=== PATIENT | female | born 1945 | race Caucasian/White ===

== ENCOUNTER 2018-03-11 07:37 | Day surgery (SDC) | payer MEDICARE, BC ==
[2018-03-11] MEDS ORDERED: Lactated Ringers 1,000 ML IV SCH (08:15)
[2018-03-11] MEDS ORDERED: Ampicillin 2 GM in Sodium Chloride 0.9% 100 ML IV ONE (08:30)
[2018-03-11] MEDS ORDERED: Propofol 200 MG/20 ML SDV ONE ×2 (09:20→10:07)
[2018-03-11] MEDS ORDERED: Midazolam 1 MG/ML 2 ML SDV ONE (09:20)
[2018-03-11] MEDS ORDERED: fentaNYL 100 MCG/2 ML SDV ONE (09:20)
[2018-03-11 11:43] VITALS: BP 125/64
--- NOTE | 2018-03-11 12:24 | OR ---
DATE OF PROCEDURE: 03/11/2018 PREOPERATIVE DIAGNOSIS: History of colon polyps. POSTOPERATIVE DIAGNOSES: 1. Two transverse colon polyps adjacent to each other. 2. Ileocecal valve polyp. 3. Diverticulosis. PROCEDURE PERFORMED: Colonoscopy to the cecum with snare cautery polypectomy of two transverse colon polyps adjacent to each other sent to the laboratory as 1 specimen and biopsy resection of the ileocecal valve polyp. SURGEON: MD Tania. ANESTHESIA: IV anesthesia with monitored anesthesia care. INDICATION: This 72-year-old white female is here for a colonoscopy because of a history of colon polyps. She says her last colonoscopic exam was done about 3 years ago. I counseled her for the procedure including risks and alternatives, and she gave her informed consent to proceed. DESCRIPTION OF PROCEDURE: The patient was placed in the left lateral decubitus position. IV anesthesia was administered by the Anesthesia Service. Time-out was held. A rectal exam was performed, which was unremarkable. The flexible video Olympus colonoscope was introduced through her anus, up her rectum, and out her colon all way to the cecum. En route, we saw several left-sided diverticula. There was no bleeding or inflammation associated with any of them. In the transverse colon, we saw 2 polyps near each other. These were fairly large. They initially were biopsied and then removed with the snare. This involved placing the snare about the polyp's base, elevating the polyp up away from the bowel wall, and applying electrocautery as the polyp was amputated. The larger polyp had to be aspirated upon the end of the scope, and the scope was removed with the polyp, then retrieved from the end of the scope. The other polyp was aspirated through the scope and captured in a polyp trap. The scope was passed further up to the cecum and then slowly withdrawn, examining the mucosa throughout. There was a small polyp on the ileocecal valve. This was removed with a single bite of the biopsy forceps. The scope was then withdrawn further with no other additional lesions noted. The scope was retroflexed in the rectum with the distal rectum appearing unremarkable. The scope was straightened and removed. She tolerated the procedure well. Oni Marin MD /[id number]
== END 2018-03-11 11:54 | disposition home or self-care (01) ==
LOC: JP.SDS 07:37
PROVIDERS: ATTEND Surgery
DX: Z12.11 Encounter for screening for malignant neoplasm of colon (principal); D12.0 Benign neoplasm of cecum; D12.3 Benign neoplasm of transverse colon; I10 Essential (primary) hypertension; I48.91 Unspecified atrial fibrillation; J45.909 Unspecified asthma, uncomplicated; K57.30 Diverticulosis of large intestine without perforation or abscess without bleeding; K21.9 Gastro-esophageal reflux disease without esophagitis; Z86.010 Personal history of colon polyps; Z86.73 Personal history of transient ischemic attack (TIA), and cerebral infarction without residual deficits; Z88.1 Allergy status to other antibiotic agents; Z88.2 Allergy status to sulfonamides; Z88.5 Allergy status to narcotic agent; Z88.6 Allergy status to analgesic agent; Z88.8 Allergy status to other drugs, medicaments and biological substances; Z91.048 Other nonmedicinal substance allergy status
CPT/HCPCS: 45380; 45385; J0290; J2250; J2704; J3010; J7030; J7120; 88305

== ENCOUNTER 2020-10-03 07:19 | Day surgery (SDC) | payer MEDICARE, BC ==
[~2020-10-03 07:19] MED LIST: Dextrose 5%-Lactated Ringers 1,000 ML IV SCH; Midazolam 1 MG/ML 2 ML SDV ONE; Propofol 200 MG/20 ML SDV ONE; fentaNYL 100 MCG/2 ML SDV ONE
[2020-10-03] MEDS ORDERED: Dextrose 5%-Lactated Ringers 1,000 ML IV SCH (08:00)
[2020-10-03] MEDS ORDERED: Propofol 200 MG/20 ML SDV ONE (09:09)
[2020-10-03 10:19] VITALS: BP 117/65; PULSE 72
--- NOTE | 2020-10-11 21:09 | OR ---
DATE OF PROCEDURE: 10/03/2020 SURGEON: Bola Humphrey MD PREOPERATIVE DIAGNOSES: 1. History of Deleon esophagus with esophagitis. 2. Recent rectal bleeding with history of multiple colon polyps in past. POSTOPERATIVE DIAGNOSES: 1. History of Deleon esophagus with mildly active gastroesophageal reflux disease. 2. Patchy proximal duodenitis. 3. History of multiple colonic polyps with no recurrent polyps. 4. Left uncomplicated diverticulosis. 5. Excoriated hemorrhoids (likely source of recent rectal bleeding). OPERATIVE PROCEDURE: 1. Esophagogastroduodenoscopy with: a. Biopsy of esophagogastric junction for histological evaluation. b. Biopsies of antrum for CLOtest. 2. Colonoscopy. ANESTHESIA: IV sedation. INDICATIONS FOR PROCEDURE: This 74-year-old with history of Deleon esophagus, presenting for a followup upper endoscopy for surveillance of the Deleon esophagus. She presently is having little in the way of reflux-type symptoms. Does have history of some recent episodes of rectal bleeding, and was having history of multiple colon polyps, and is presently on a 3- year cycle with regard to the colonoscopies. Plan is to proceed with an upper and lower endoscopy with biopsies and a polypectomy as indicated. Potential risks including bleeding and perforation were discussed, and the patient wishes to proceed. DETAILS OF PROCEDURE: The patient was taken to the operating room and placed in a left lateral decubitus position. IV sedation was administered, after which the upper GI endoscope was passed orally through the length of the esophagus into the stomach with retroflexion view of the fundus, thereafter through the pyloric channel and into the proximal duodenum. Findings included normal hypopharynx, larynx, upper esophageal sphincter, esophageal body. At the EG junction, there was some mild gastroesophageal reflux disease. There was some slight upward extension of the gastroesophageal junction mucosal line consistent with history of Deleon esophagus. No plaquing or stricturing was noted. The remainder of the stomach was unremarkable apart from a small hiatal hernia. There was some patchy redness in the duodenal bulb where the duodenum normalized beyond that level. At this point, biopsies obtained from the antrum and sent for CLOtest for H pylori. Multiple biopsies obtained from the esophagogastric junction and sent for histological evaluation. Minimal bleeding from the biopsy sites was seen, and the procedure then concluded. The attention was then taken to the colonoscopy. Initial digital rectal exam was performed. It was unremarkable. Colonoscope was then passed into the rectum with retroflexion revealing some fairly gordon appearing hemorrhoidal columns. These were not actively bleeding, but certainly would be likely a source for pain. Otherwise, the scope was passed to the level of the cecum. The prep was quite good. There was only small amount of liquid stool present. There was some uncomplicated left colonic diverticulosis. Otherwise, no recurrent polyps were seen, and the scope was then withdrawn, the above findings reconfirmed, and the procedure then concluded. The patient was taken to the recovery room in satisfactory condition. Assuming that the biopsies from the esophagogastric junction only showed progression toward dysplasia, the next upper endoscopy and colonoscopy could probably be done in 3 years. Bola Humphrey MD /[id number]
== END 2020-10-03 10:50 | disposition home or self-care (01) ==
LOC: JP.SDS 07:19
PROVIDERS: ATTEND Surgery
DX: K57.31 Diverticulosis of large intestine without perforation or abscess with bleeding (principal); K22.10 Ulcer of esophagus without bleeding; K21.9 Gastro-esophageal reflux disease without esophagitis; K29.80 Duodenitis without bleeding; K44.9 Diaphragmatic hernia without obstruction or gangrene; K64.9 Unspecified hemorrhoids; E78.5 Hyperlipidemia, unspecified; I10 Essential (primary) hypertension; I48.91 Unspecified atrial fibrillation; E11.9 Type 2 diabetes mellitus without complications; E66.01 Morbid (severe) obesity due to excess calories; F32.9 Major depressive disorder, single episode, unspecified; Z86.010 Personal history of colon polyps
CPT/HCPCS: 36415; 85610; 87081; 88305; 88312; J2250; J2704; J3010; J7121

== ENCOUNTER 2021-06-23 11:33 | Observation (INO) | payer MEDICARE, BC ==
[2021-06-23] MEDS ORDERED: Metoprolol Tartrate 5 MG/5 ML SDV IVPUSH ONE (12:04)
--- NOTE | 2021-06-23 12:05 | EDM.PDOC ---
ED HPI GENERAL MEDICAL PROBLEM - General Chief Complaint: Cardiovascular Problem Stated Complaint: [facility] Time Seen by Provider: 06/23/21 11:45 Source of Information: Reports: Patient, EMS History Limitations: Reports: No Limitations - History of Present Illness INITIAL COMMENTS - FREE TEXT/NARRATIVE: 75-year-old female brought in by ambulance initially with left foot injury and nausea, however she was found to be in atrial fibrillation with RVR. She has had 2 near syncopal episodes this morning. She has had some problems with constipation, this morning she felt she had a have a bowel movement but was unable, but then after leaving the bathroom she had a sudden case of explosive diarrhea where she "barely made it to the bathroom". During that time she fell and knocked a glass onto her left foot bruising her foot causing a small laceration. Afterwards she went into the shower to try to clean up and she was just so weak she felt her could not take care of her so she called the ambulance. They found her to be in atrial fibrillation. She was afebrile, O2 sats normal. Onset: Unknown/Unsure Duration: Day(s): (Has felt weaker for the past 12 hours, nausea for the last several days) Worsens with: Reports: Other (She thinks her medications are making her worse) Associated Symptoms: Reports: Malaise, Nausea/Vomiting, Weakness, Other (Intermittent constipation and diarrhea). Denies: Chest Pain Right Hip Pain Score (Numeric/FACES): 7 - Related Data Allergies Allergy/AdvReac Type Severity Reaction Status Date / Time codeine Allergy Unknown Cannot Verified 06/23/21 14:56 Remember adhesive Allergy Rash Verified 06/23/21 14:56 celecoxib [From Celebrex] Allergy Hives Verified 06/23/21 14:56 febuxostat Allergy Cannot Verified 06/23/21 14:56 Remember latex Allergy Rash Verified 06/23/21 14:56 Sulfa (Sulfonamide Allergy Rash Verified 06/23/21 14:56 Antibiotics) tramadol Allergy Cannot Verified 06/23/21 14:56 Remember diphenhydramine AdvReac Tachycardia Verified 06/23/21 14:56 Home Meds: Home Meds Cholecalciferol (Vitamin D3) [Vitamin D3] 2,000 unit PO DAILY 03/16/14 [History] Allopurinol [Zyloprim] 300 mg PO DAILY 03/13/15 [History] Bee Pollen 1,000 mg PO DAILY 03/13/15 [History] Warfarin [Coumadin] 5 mg PO ASDIRECTED 06/26/16 [History] Levalbuterol Tartrate [Xopenex HFA] 2 puff INH Q6H PRN 03/10/18 [History] Metoprolol Succinate [Toprol XL 100mg] 75 mg PO DAILY 03/11/18 [History] Albuterol [Ventolin 2 MG/5 ML] 1.5 ml NEB DAILY 08/04/20 [History] Furosemide [Lasix] 40 mg PO DAILY 08/04/20 [History] Losartan [Cozaar] 12.5 mg PO DAILY 08/04/20 [History] Montelukast [Singulair] 1 tab PO QPM 08/04/20 [History] Nitroglycerin [Nitrostat] 0.4 mg SL ASDIRECTED PRN 08/04/20 [History] aMILoride [Midamor] 5 mg PO DAILY 08/04/20 [History] atorvaSTATin [Lipitor] 80 mg PO QPM 08/04/20 [History] Famotidine [Pepcid AC] 20 mg PO DAILY 10/03/20 [History] Acetaminophen 650 mg PO Q6H PRN 06/23/21 [History] Aspirin [Adult Low Dose Aspirin EC] 81 mg PO DAILY 06/23/21 [History] nitrofurantoin macrocrystaL [Nitrofurantoin] 1 cap PO BID 06/23/21 [History] traMADol [Ultram] 1 - 2 tab PO Q4HR PRN 06/23/21 [History] Past Medical History HEENT History: Reports: Allergic Rhinitis, Cataract, Glaucoma Cardiovascular History: Reports: Arrhythmia, High Cholesterol, Hypertension, AL, Other (See Below) Other Cardiovascular History: a fib Respiratory History: Reports: Asthma Gastrointestinal History: Reports: GERD, Hemorrhoids, Hiatal Hernia OUTSOLE CASER History: Reports: , Prolapsed Uterus Musculoskeletal History: Reports: Back Pain, Chronic, Osteoarthritis, Osteoporosis Other Musculoskeletal History: cervical spine disease. fracture vertibrae L-1 2 3 Neurological History: Reports: CVA, Headaches, Chronic Psychiatric History: Reports: Anxiety Oncologic (Cancer) History: Reports: Other (See Below) Other Oncologic History: skin Dermatologic History: Reports: Cellulitis, Psoriasis - Infectious Disease History Infectious Disease History: Reports: Chicken Pox, Measles - Past Surgical History Cardiovascular Surgical History: Reports: Coronary Artery Stent, Other (See Below) Other Cardiovascular Surgeries/Procedures: ablation GI Surgical History: Reports: Colonoscopy, EGD Female Surgical History: Reports: Hysterectomy, Tubal Ligation Other Female Surgeries/Procedures: pisery for prolapse Musculoskeletal Surgical History: Reports: Arthroscopic Knee, Hip Replacement, Knee Replacement Other Musculoskeletal Surgeries/Procedures:: right knee. left hip Social & Family History - Tobacco Use Tobacco Use Status *Q: Never Tobacco User - Caffeine Use Caffeine Use: Reports: Coffee - Recreational Drug Use Recreational Drug Use: No ED ROS GENERAL - Review of Systems Review Of Systems: See Below Constitutional: Reports: Malaise. Denies: Fever, Chills HEENT: Denies: Throat Pain Respiratory: Denies: Shortness of Breath Cardiovascular: Denies: Chest Pain GI/Abdominal: Reports: Abdominal Pain (Some mild cramping), Constipation, Diarrhea, Decreased Appetite, Nausea : Reports: Other (Recent UTI but no current symptoms) Musculoskeletal: Reports: Other (Significant right-sided hip pain from recent surgery) Skin: Reports: Bruising (Some perioperative bruising, no other widespread complaints or rash) Neurological: Reports: Syncope (Near syncopal episodes), Weakness Psychiatric: Reports: No Symptoms ED EXAM, GENERAL - Physical Exam Exam: See Below Exam Limited By: No Limitations General Appearance: Alert, No Apparent Distress Eye Exam: Bilateral Eye: Normal Inspection Head: Atraumatic Neck: Supple, Non-Tender Respiratory/Chest: Lungs Clear Cardiovascular: Tachycardia, Irregularly Irregular GI/Abdominal: Soft, Tender (Mild discomfort to palpation across the upper abdomen but no focal guarding or rebound, normal bowel sounds) Extremities: Other (Patient has intense pain with any passive range of motion of the right hip due to recent surgery. There is a small area of ecchymosis on the lateral left foot but no bony tenderness.) Neurological: Alert, Oriented, No Motor/Sensory Deficits Psychiatric: Normal Affect, Normal Mood Skin Exam: Warm, Dry Course - Vital Signs Last Recorded V/S: Last Vital Signs Temp 100.2 F 06/23/21 14:50 Pulse 116 H 06/23/21 14:50 Resp 16 06/23/21 14:50 BP 129/69 06/23/21 14:50 Pulse Ox 94 L 06/23/21 14:50 - Orders/Labs/Meds Orders: Active Orders 24 hr Category Date Time Status Patient Status [ADT] Routine ADT 06/23/21 14:38 Active Cardiac Monitoring [RC] CONTINUOUS Care 06/23/21 14:38 Active Intake and Output [RC] QSHIFT Care 06/23/21 14:38 Active Notify Provider Vital Signs [RC] ASDIRECTED Care 06/23/21 14:38 Active Oxygen Therapy [RC] PRN Care 06/23/21 14:38 Active RT Aerosol Therapy [RC] ASDIRECTED Care 06/23/21 14:38 Active Up With Assistance [RC] ASDIRECTED Care 06/23/21 14:38 Active VTE/DVT Education [RC] Per Unit Routine Care 06/23/21 14:38 Active Vital Signs [RC] Q4H Care 06/23/21 14:38 Active Regular Diet [DIET] Diet 06/23/21 Dinner Active BASIC METABOLIC PANEL,BMP [CHEM] AM Lab 06/24/21 05:11 Ordered CBC W/O DIFF,HEMOGRAM [HEME] AM Lab 06/24/21 05:11 Ordered INR,PT,PROTHROMBIN TIME [COAG] AM Lab 06/24/21 05:11 Ordered Acetaminophen [TylenoL] Med 06/23/21 14:47 Active 650 mg PO Q6H PRN Albuterol [Proventil Neb Soln] Med 06/23/21 14:38 Active 2.5 mg NEB Q4H PRN Aspirin [Halfprin] Med 06/24/21 09:00 Active 81 mg PO DAILY Ciprofloxacin [Ciprofloxacin HCl] Med 06/23/21 21:00 Active 500 mg PO BIDAC Docusate Sodium/Sennosides [Senna Plus] Med 06/23/21 14:38 Active 1 tab PO BID PRN LORazepam [Ativan] Med 06/23/21 14:38 Active 0.5 mg IVPUSH Q4H PRN Lactobacillus Rhamnosus GG [Culturelle] Med 06/23/21 21:00 Active 1 cap PO BID Magnesium Hydroxide [Milk of Magnesia] Med 06/23/21 14:38 Active 30 ml PO Q12H PRN Ondansetron [Zofran ODT] Med 06/23/21 14:38 Active 4 mg PO Q6H PRN Ondansetron [Zofran] Med 06/23/21 14:38 Active 4 mg IV Q6H PRN Potassium Chloride [Klor-Con M20] Med 06/23/21 15:15 Once 40 meq PO ONETIME ONE Sodium Chloride 0.9% [Normal Saline] 1,000 ml Med 06/23/21 14:38 Active IV ASDIRECTED Resuscitation Status Routine Resus Stat 06/23/21 14:20 Ordered Medication Orders Acetaminophen (Acetaminophen 325 Mg Tab) 650 mg PO Q6H PRN PRN Reason: PAIN/FEVER Albuterol (Albuterol 0.083% 2.5 Mg/3 Ml Neb Soln) 2.5 mg NEB Q4H PRN PRN Reason: Shortness Of Breath/wheezing Aspirin (Aspirin 81 Mg Tab.Ec) 81 mg PO DAILY [facility] Atorvastatin Calcium (Atorvastatin 20 Mg Tab) 80 mg PO QPM [facility] Ciprofloxacin (Ciprofloxacin 500 Mg Tab) 500 mg PO BIDAC KUL[facility]IP Famotidine (Famotidine 20 Mg Tab) 20 mg PO DAILY [facility] Sodium Chloride (Normal Saline) 1,000 mls @ 125 mls/hr IV ASDIRECTED KUL[facility]IP Stop: 06/23/21 22:39 Lactobacillus Rhamnosus (Lactobacillus Rhamnosus Gg (Probiotic) Cap) 1 cap PO BID [facility] Lorazepam (Lorazepam 2 Mg/Ml Sdv) 0.5 mg IVPUSH Q4H PRN PRN Reason: Nausea/Vomiting Magnesium Hydroxide (Magnesium Hydroxide 400 Mg/5 Ml Susp 30 Ml Cup) 30 ml PO Q12H PRN PRN Reason: Constipation Metoprolol Succinate 50 mg/ (Metoprolol Succinate 25 mg) 75 mg PO DAILY [facility] Montelukast Sodium (Montelukast 10 Mg Tab) 10 mg PO BEDTIME [facility] Ondansetron HCl (Ondansetron 4 Mg/2 Ml Sdv) 4 mg IV Q6H PRN PRN Reason: Nausea/Vomiting Ondansetron HCl (Ondansetron 4 Mg Tab.Dis) 4 mg PO Q6H PRN PRN Reason: Nausea able to take PO Potassium Chloride (Potassium Chloride 20 Meq Tab.Er) 40 meq PO ONETIME ONE Stop: 06/23/21 15:16 Senna/Docusate Sodium (Docusate Sodium/Sennosides 50-8.6 Mg Tab) 1 tab PO BID PRN PRN Reason: Constipation Tramadol HCl (Tramadol 50 Mg Tab) 1 mg PO Q4H PRN PRN Reason: Pain Warfarin Sodium (Warfarin 5 Mg Tab) 5 mg PO DAILY@1300 [facility] Labs: Laboratory Tests 06/23/21 06/23/21 06/23/21 Range/Units 11:45 11:45 12:28 WBC 8.4 (4.5-11.0) K/uL RBC 3.70 (3.30-5.50) M/uL Hgb 11.4 L (12.0-15.0) g/dL Hct 33.5 L (36.0-48.0) % MCV 91 (80-98) fL MCH 31 (27-31) pg MCHC 34 (32-36) % Plt Count 375 (150-400) K/uL Neut % (Auto) 91.0 H (36-66) % Lymph % (Auto) 3.4 L (24-44) % Teller % (Auto) 5.4 (2-6) % Eos % (Auto) 0.1 L (2-4) % Baso % (Auto) 0.1 (0-1) % PT (9.5-12.0) sec INR (0.80-1.20) Sodium 134 L (140-148) mmol/L Potassium 3.5 L (3.6-5.2) mmol/L Chloride 97 L (100-108) mmol/L Carbon Dioxide 21 (21-32) mmol/L Anion Gap 19.5 H (5.0-14.0) mmol/L BUN 9 D (7-18) mg/dL Creatinine 0.9 (0.6-1.0) mg/dL Est Cr Clr Drug Dosing 45.36 mL/min Estimated GFR (MDRD) > 60 (>60) Glucose 140 H (74-106) mg/dL Calcium 8.4 L (8.5-10.1) mg/dL Total Bilirubin 0.7 (0.2-1.0) mg/dL AST 64 H D (15-37) U/L ALT 47 D (12-78) U/L Alkaline Phosphatase 98 D (46-116) U/L Troponin I < 0.017 (0.000-0.056) ng/mL Total Protein 6.2 L (6.4-8.2) g/dL Albumin 2.6 L (3.4-5.0) g/dL Globulin 3.6 H (2.3-3.5) g/dL Albumin/Globulin Ratio 0.7 L (1.2-2.2) Urine Color Yellow (YELLOW) Urine Appearance Slightly cloudy A (CLEAR) Urine pH 5.5 (5.0-8.0) Ur Specific [place] 1.020 (1.008-1.030) Urine Protein Trace H (NEGATIVE) mg/dL Urine Glucose (UA) Negative (NEGATIVE) mg/dL Urine Ketones 15 H (NEGATIVE) mg/dL Urine Occult Blood Trace-intact H (NEGATIVE) Urine Nitrite Negative (NEGATIVE) Urine Bilirubin Negative (NEGATIVE) Urine Urobilinogen 0.2 (0.2-1.0) EU/dL Ur Leukocyte Esterase Small H (NEGATIVE) Urine RBC 5-10 H (0-5) Urine WBC 20-30 H (0-5) Ur Epithelial Cells Few Amorphous Sediment Few Urine Bacteria Few Urine Mucus Few /14/ Range/Units 13:29 WBC (4.5-11.0) K/uL RBC (3.30-5.50) M/uL Hgb (12.0-15.0) g/dL Hct (36.0-48.0) % MCV (80-98) fL MCH (27-31) pg MCHC (32-36) % Plt Count (150-400) K/uL Neut % (Auto) (36-66) % Lymph % (Auto) (24-44) % Teller % (Auto) (2-6) % Eos % (Auto) (2-4) % Baso % (Auto) (0-1) % PT 19.7 H (9.5-12.0) sec INR 1.83 H (0.80-1.20) Sodium (140-148) mmol/L Potassium (3.6-5.2) mmol/L Chloride (100-108) mmol/L Carbon Dioxide (21-32) mmol/L Anion Gap (5.0-14.0) mmol/L BUN (7-18) mg/dL Creatinine (0.6-1.0) mg/dL Est Cr Clr Drug Dosing mL/min Estimated GFR (MDRD) (>60) Glucose (74-106) mg/dL Calcium (8.5-10.1) mg/dL Total Bilirubin (0.2-1.0) mg/dL AST (15-37) U/L ALT (12-78) U/L Alkaline Phosphatase (46-116) U/L Troponin I (0.000-0.056) ng/mL Total Protein (6.4-8.2) g/dL Albumin (3.4-5.0) g/dL Globulin (2.3-3.5) g/dL Albumin/Globulin Ratio (1.2-2.2) Urine Color (YELLOW) Urine Appearance (CLEAR) Urine pH (5.0-8.0) Ur Specific [place] (1.008-1.030) Urine Protein (NEGATIVE) mg/dL Urine Glucose (UA) (NEGATIVE) mg/dL Urine Ketones (NEGATIVE) mg/dL Urine Occult Blood (NEGATIVE) Urine Nitrite (NEGATIVE) Urine Bilirubin (NEGATIVE) Urine Urobilinogen (0.2-1.0) EU/dL Ur Leukocyte Esterase (NEGATIVE) Urine RBC (0-5) Urine WBC (0-5) Ur Epithelial Cells Amorphous Sediment Urine Bacteria Urine Mucus Meds: Medications Generic Name Dose Route Start Last Admin Trade Name Freq PRN Reason Stop Dose Admin Acetaminophen 650 mg 06/23/21 14:47 Acetaminophen 325 Mg Tab PO Q6H PRN PAIN/FEVER Albuterol 2.5 mg 06/23/21 14:38 Albuterol 0.083% 2.5 Mg/3 Ml Neb Soln NEB Q4H PRN Shortness Of Breath/wheezing Aspirin 81 mg 06/24/21 09:00 Aspirin 81 Mg Tab.Ec PO DAILY [facility] Atorvastatin Calcium 80 mg 06/23/21 17:00 Atorvastatin 20 Mg Tab PO QPM KUL[facility]IP Ciprofloxacin 500 mg 06/23/21 21:00 Ciprofloxacin 500 Mg Tab PO BIDAC KULDIP Famotidine 20 mg 06/24/21 09:00 Famotidine 20 Mg Tab PO DAILY [facility] Sodium Chloride 1,000 mls @ 125 mls/hr 06/23/21 14:38 Normal Saline IV 06/23/21 22:39 ASDIRECTED KULDIP Lactobacillus Rhamnosus 1 cap 06/23/21 21:00 Lactobacillus Rhamnosus Gg (Probiotic) Cap PO BID [facility]IP Lorazepam 0.5 mg 06/23/21 14:38 Lorazepam 2 Mg/Ml Sdv IVPUSH Q4H PRN Nausea/Vomiting Magnesium Hydroxide 30 ml 06/23/21 14:38 Magnesium Hydroxide 400 Mg/5 Ml Susp 30 Ml Cup PO Q12H PRN Constipation Metoprolol Succinate 50 mg/ 75 mg 06/24/21 09:00 Metoprolol Succinate 25 mg PO DAILY [facility] Montelukast Sodium 10 mg 06/23/21 21:00 Montelukast 10 Mg Tab PO BEDTIME [facility]IP Ondansetron HCl 4 mg 06/23/21 14:38 Ondansetron 4 Mg/2 Ml Sdv IV Q6H PRN Nausea/Vomiting Ondansetron HCl 4 mg 06/23/21 14:38 Ondansetron 4 Mg Tab.Dis PO Q6H PRN Nausea able to take PO Potassium Chloride 40 meq 06/23/21 15:15 Potassium Chloride 20 Meq Tab.Er PO 06/23/21 15:16 ONETIME ONE Senna/Docusate Sodium 1 tab 06/23/21 14:38 Docusate Sodium/Sennosides 50-8.6 Mg Tab PO BID PRN Constipation Tramadol HCl 1 mg 06/23/21 15:00 Tramadol 50 Mg Tab PO Q4H PRN Pain Warfarin Sodium 5 mg 06/23/21 15:00 Warfarin 5 Mg Tab PO DAILY@1300 [facility] Discontinued Medications Generic Name Dose Route Start Last Admin Trade Name Freq PRN Reason Stop Dose Admin Ciprofloxacin 500 mg 06/23/21 14:12 06/23/21 14:18 Ciprofloxacin 500 Mg Tab PO 06/23/21 14:13 500 mg ONETIME ONE Administration Metoprolol Succinate 50 mg 06/23/21 14:12 06/23/21 14:17 Metoprolol Succinate 50 Mg Tab.Er PO 06/23/21 14:13 50 mg ONETIME ONE Administration Metoprolol Tartrate 5 mg 06/23/21 12:04 06/23/21 12:09 Metoprolol Tartrate 5 Mg/5 Ml Sdv IVPUSH 06/23/21 12:05 5 mg ONETIME ONE Administration Propofol 200 mg 06/23/21 12:56 06/23/21 13:57 Propofol 200 Mg/20 Ml Sdv IVPUSH 06/23/21 12:57 70 mg ONETIME ONE Administration - Re-Assessments/Exams Free Text/Narrative Re-Assessment/Exam: 06/23/21 13:34 Mini cath UA was obtained which showed 10-20 WBCs and a few bacteria, CBC CMP were also obtained. On arrival her rate was 120-140, she was given 5 mg of IV metoprolol. When labs returned generally reassuring, she was prepared for elective cardioversion after consent was obtained and discussion of risks and benefits. Using 70 mg of IV propofol, patient was cardioverted twice with 100 J then 200 J of synchronized cardioversion. The first attempt did result in a brief run of sinus rhythm but then she just reverted back to atrial fibrillation, second 200 J shock had no significant effect. 06/23/21 13:35 I discussed her situation with Dr. Merino of the hospitalist service, he agreed to see her to consider admission for rate control, pain control, and consultation if she does not convert to sinus rhythm on her own. Departure - Departure Time of Disposition: 14:40 Disposition: Refer to Observation Clinical Impression: Atrial fibrillation with rapid ventricular response, Acute cystitis without hematuria Contusion of left foot Qualifiers: Encounter type: initial encounter Qualified Code(s): S90.32XA - Contusion of left foot, initial encounter Sepsis Event Note (ED) - Evaluation Sepsis Screening Result: Possible Sepsis Risk - Focused Exam Vital Signs: Vital Signs Temp Pulse Pulse Resp BP BP Pulse Ox 06/23/21 14:17 109 H 111/70 06/23/21 14:10 108 H 19 111/70 98 06/23/21 12:28 111 H 19 119/65 95 06/23/21 12:09 115 H 117/61 06/23/21 12:03 128 H 117/61 06/23/21 11:59 97.3 F 142 H 26 H 115/48 L 96 06/23/21 11:35 97.3 F 142 H 26 H 115/48 L 96
[2021-06-23] MEDS ORDERED: Propofol 200 MG/20 ML SDV IVPUSH ONE (12:56)
[2021-06-23] MEDS ORDERED: Ciprofloxacin 500 MG Tab PO ONE (14:12)
[2021-06-23] MEDS ORDERED: Metoprolol Succinate 50 MG Tab.ER PO ONE (14:12)
--- NOTE | 2021-06-23 14:24 | PCM.HP.2 ---
H&P History of Present Illness - General Date of Service: 06/23/21 Admit Problem/Dx: Admission Diagnosis/Problem Admission Diagnosis/Problem Atrial fibrillation with rapid ventricular response Source of Information: Patient, Provider History Limitations: Reports: No Limitations - History of Present Illness Initial Comments - Free Text/Narative: CC: I was weak and dizzy HPI: Malathi presents to the emergency room today with shakiness, dizziness and left foot pain. She reports that she had her hip replaced just over a week ago at [facility] in [place]. Since the surgery she has just not felt well but was doing okay for the first few days. Over the last few days she has developed some nausea and thought maybe she had a urinary tract infection. Urine sample was collected and suspicious for a urinary tract infection so she was started on nitrofurantoin couple of days ago. Since then she has gotten worse with increased nausea. This morning she had an episode of vomiting and then had an urgent loose stool. She does not report any abdominal pain. She had a temperature of 102.8 at home around the time of the increased nausea this mornin g. She was also very shaky and felt very weak. Her left foot pain developed while she was trying to get to the bathroom for the urgent bowel movement. While trying to get there a glass fell on her foot. She describes moderate achy pain in the left foot that does not radiate. She has not taken anything to make it feel better. Any sort of movement makes the pain worse. Her left hip pain has steadily been getting better since surgery and she thinks the surgical site is looking better each day. She has not had any chest pain, shortness of breath or palpitations. Work-up in the emergency room revealed evidence for atrial fibrillation with a rapid ventricular response. Potassium was a little low and urine still suggested infection. She did receive some IV metoprolol which helped to slow down her heart rate. Cardioversion was attempted twice and successful for only a few moments the first time around. She remains in atrial fibrillation with a heart rate in the 110-120 range with occasional jumps up to 140. She is asymptomatic with this. I did review her urine culture from the clinic and this grew out Enterobacter that was resistant to the nitrofurantoin. She will be admitted for rate control and initiation of an alternate antibiotic. Right Hip Pain Score (Numeric/FACES): 7 - Related Data Allergies/Adverse Reactions: Allergies Allergy/AdvReac Type Severity Reaction Status Date / Time adhesive Allergy Rash Verified 06/23/21 11:40 celecoxib [From Celebrex] Allergy Hives Verified 06/23/21 11:40 codeine Allergy Cannot Verified 06/23/21 11:40 Remember febuxostat Allergy Cannot Verified 06/23/21 11:40 Remember latex Allergy Rash Verified 06/23/21 11:40 Sulfa (Sulfonamide Allergy Rash Verified 06/23/21 11:40 Antibiotics) tramadol Allergy Cannot Verified 06/23/21 11:40 Remember diphenhydramine AdvReac Tachycardia Verified 06/23/21 11:40 Home Medications: Home Meds Cholecalciferol (Vitamin D3) [Vitamin D3] 2,000 unit PO DAILY 03/16/14 [History] Allopurinol [Zyloprim] 300 mg PO DAILY 03/13/15 [History] Bee Pollen 1,000 mg PO DAILY 03/13/15 [History] Warfarin [Coumadin] 5 mg PO ASDIRECTED 06/26/16 [History] Levalbuterol Tartrate [Xopenex HFA] 2 puff INH Q6H PRN 03/10/18 [History] Metoprolol Succinate [Toprol XL 100mg] 75 mg PO DAILY 03/11/18 [History] Albuterol [Ventolin 2 MG/5 ML] 1.5 ml NEB DAILY 08/04/20 [History] Furosemide [Lasix] 40 mg PO DAILY 08/04/20 [History] Losartan [Cozaar] 12.5 mg PO DAILY 08/04/20 [History] Montelukast [Singulair] 1 tab PO QPM 08/04/20 [History] Nitroglycerin [Nitrostat] 0.4 mg SL ASDIRECTED PRN 08/04/20 [History] aMILoride [Midamor] 5 mg PO DAILY 08/04/20 [History] atorvaSTATin [Lipitor] 80 mg PO QPM 08/04/20 [History] Famotidine [Pepcid AC] 20 mg PO DAILY 10/03/20 [History] Acetaminophen 650 mg PO Q6H PRN 06/23/21 [History] Aspirin [Adult Low Dose Aspirin EC] 81 mg PO DAILY 06/23/21 [History] nitrofurantoin macrocrystaL [Nitrofurantoin] 1 cap PO BID 06/23/21 [History] traMADol [Ultram] 1 - 2 tab PO Q4HR PRN 06/23/21 [History] Past Medical History HEENT History: Reports: Allergic Rhinitis, Cataract, Glaucoma Cardiovascular History: Reports: Arrhythmia, High Cholesterol, Hypertension, MD, Other (See Below) Other Cardiovascular History: a fib Respiratory History: Reports: Asthma Gastrointestinal History: Reports: GERD, Hemorrhoids, Hiatal Hernia 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 fracture vertibrae L-1 2 3 Neurological History: Reports: CVA, Headaches, Chronic Psychiatric History: Reports: Anxiety Oncologic (Cancer) History: Reports: Other (See Below) Other Oncologic History: skin Dermatologic History: Reports: Cellulitis, Psoriasis - Infectious Disease History Infectious Disease History: Reports: Chicken Pox, Measles - Past Surgical History Cardiovascular Surgical History: Reports: Coronary Artery Stent, Other (See Below) Other Cardiovascular Surgeries/Procedures: ablation GI Surgical History: Reports: Colonoscopy, EGD Female Surgical History: Reports: Hysterectomy, Tubal Ligation Other Female Surgeries/Procedures: pisery for prolapse Musculoskeletal Surgical History: Reports: Arthroscopic Knee, Hip Replacement, Knee Replacement Other Musculoskeletal Surgeries/Procedures:: right knee. left hip Social & Family History - Family History Cardiac: Denies: CAD - Tobacco Use Tobacco Use Status *Q: Never Tobacco User - Caffeine Use Caffeine Use: Reports: Coffee - Recreational Drug Use Recreational Drug Use: No H&P Review of Systems - Review of Systems: Review Of Systems: See Below Free Text/Narrative: A complete 12 point review of systems was obtained. Pertinent positives and negatives are noted in the history of present illness. All other systems were reviewed and were negative except as noted. Exam - Exam Exam: See Below - Vital Signs Vital Signs: Last Vital Signs Temp 36.3 C 06/23/21 11:59 Pulse 109 H 06/23/21 14:17 Resp 19 06/23/21 14:10 BP 111/70 06/23/21 14:17 Pulse Ox 98 06/23/21 14:10 Weight: 104.326 kg - Exam Quality Assessment: No: Supplemental Oxygen General: Alert, Oriented, Cooperative. No: Mild Distress HEENT: Conjunctiva Clear. No: Mucosa Moist & [place] (Dry), Scleral Icterus Neck: Supple, Trachea Midline. No: Lymphadenopathy, Thyromegaly Lungs: Clear to Auscultation, Normal Respiratory Effort Cardiovascular: Irregular Rhythm, Tachycardia. No: Systolic Murmur GI/Abdominal Exam: Normal Bowel Sounds, Soft, No Distention, Tender (Mild generalized). No: Guarding Extremities: Pedal Edema (Mild bilateral foot edema slightly greater on the left), Other (Right hip incision is covered with a bandage. There is no blood spotting through the bandage). No: Increased Warmth Skin: Warm, Dry, Ecchymosis (Mild bruising extending down to the ankle from the recent hip surgery on the right. Bruising over the distal lateral portion of the left foot), Wound (2 very small puncture wounds on top of the left foot with no active bleeding) Neuro Extensive - Mental Status: Alert, Oriented x3, Nl Response to Commands Neuro Extensive - Motor, Sensory, Reflexes: No: Dysarthria, Abnormal Motor, Tremor Psychiatric: Alert, Normal Affect - Patient Data Lab Results Last 24 hrs: Laboratory Results - last 24 hr 06/23/21 06/23/21 06/23/21 Range/Units 11:45 11:45 12:28 WBC 8.4 (4.5-11.0) K/uL RBC 3.70 (3.30-5.50) M/uL Hgb 11.4 L (12.0-15.0) g/dL Hct 33.5 L (36.0-48.0) % MCV 91 (80-98) fL MCH 31 (27-31) pg MCHC 34 (32-36) % Plt Count 375 (150-400) K/uL Neut % (Auto) 91.0 H (36-66) % Lymph % (Auto) 3.4 L (24-44) % [facility] % (Auto) 5.4 (2-6) % Eos % (Auto) 0.1 L (2-4) % Baso % (Auto) 0.1 (0-1) % PT (9.5-12.0) sec INR (0.80-1.20) Sodium 134 L (140-148) mmol/L Potassium 3.5 L (3.6-5.2) mmol/L Chloride 97 L (100-108) mmol/L Carbon Dioxide 21 (21-32) mmol/L Anion Gap 19.5 H (5.0-14.0) mmol/L BUN 9 D (7-18) mg/dL Creatinine 0.9 (0.6-1.0) mg/dL Est Cr Clr Drug Dosing 45.36 mL/min Estimated GFR (MDRD) > 60 (>60) Glucose 140 H (74-106) mg/dL Calcium 8.4 L (8.5-10.1) mg/dL Total Bilirubin 0.7 (0.2-1.0) mg/dL AST 64 H D (15-37) U/L ALT 47 D (12-78) U/L Alkaline Phosphatase 98 D (46-116) U/L Troponin I < 0.017 (0.000-0.056) ng/mL Total Protein 6.2 L (6.4-8.2) g/dL Albumin 2.6 L (3.4-5.0) g/dL Globulin 3.6 H (2.3-3.5) g/dL Albumin/Globulin Ratio 0.7 L (1.2-2.2) Urine Color Yellow (YELLOW) Urine Appearance Slightly cloudy A (CLEAR) Urine pH 5.5 (5.0-8.0) Ur Specific [place] 1.020 (1.008-1.030) Urine Protein Trace H (NEGATIVE) mg/dL Urine Glucose (UA) Negative (NEGATIVE) mg/dL Urine Ketones 15 H (NEGATIVE) mg/dL Urine Occult Blood Trace-intact H (NEGATIVE) Urine Nitrite Negative (NEGATIVE) Urine Bilirubin Negative (NEGATIVE) Urine Urobilinogen 0.2 (0.2-1.0) EU/dL Ur Leukocyte Esterase Small H (NEGATIVE) Urine RBC 5-10 H (0-5) Urine WBC 20-30 H (0-5) Ur Epithelial Cells Few Amorphous Sediment Few Urine Bacteria Few Urine Mucus Few 06/23/21 Range/Units 13:29 WBC (4.5-11.0) K/uL RBC (3.30-5.50) M/uL Hgb (12.0-15.0) g/dL Hct (36.0-48.0) % MCV (80-98) fL MCH (27-31) pg MCHC (32-36) % Plt Count (150-400) K/uL Neut % (Auto) (36-66) % Lymph % (Auto) (24-44) % [facility] % (Auto) (2-6) % Eos % (Auto) (2-4) % Baso % (Auto) (0-1) % PT 19.7 H (9.5-12.0) sec INR 1.83 H (0.80-1.20) Sodium (140-148) mmol/L Potassium (3.6-5.2) mmol/L Chloride (100-108) mmol/L Carbon Dioxide (21-32) mmol/L Anion Gap (5.0-14.0) mmol/L BUN (7-18) mg/dL Creatinine (0.6-1.0) mg/dL Est Cr Clr Drug Dosing mL/min Estimated GFR (MDRD) (>60) Glucose (74-106) mg/dL Calcium (8.5-10.1) mg/dL Total Bilirubin (0.2-1.0) mg/dL AST (15-37) U/L ALT (12-78) U/L Alkaline Phosphatase (46-116) U/L Troponin I (0.000-0.056) ng/mL Total Protein (6.4-8.2) g/dL Albumin (3.4-5.0) g/dL Globulin (2.3-3.5) g/dL Albumin/Globulin Ratio (1.2-2.2) Urine Color (YELLOW) Urine Appearance (CLEAR) Urine pH (5.0-8.0) Ur Specific [place] (1.008-1.030) Urine Protein (NEGATIVE) mg/dL Urine Glucose (UA) (NEGATIVE) mg/dL Urine Ketones (NEGATIVE) mg/dL Urine Occult Blood (NEGATIVE) Urine Nitrite (NEGATIVE) Urine Bilirubin (NEGATIVE) Urine Urobilinogen (0.2-1.0) EU/dL Ur Leukocyte Esterase (NEGATIVE) Urine RBC (0-5) Urine WBC (0-5) Ur Epithelial Cells Amorphous Sediment Urine Bacteria Urine Mucus Result Diagrams: 06/23/21 11:45 06/23/21 11:45 Sepsis Event Note - Evaluation Sepsis Screening Result: Possible Sepsis Risk - Focused Exam Vital Signs: Vital Signs Temp Pulse Pulse Resp BP BP Pulse Ox 06/23/21 14:17 109 H 111/70 06/23/21 14:10 108 H 19 111/70 98 06/23/21 12:28 111 H 19 119/65 95 06/23/21 12:09 115 H 117/61 06/23/21 12:03 128 H 117/61 06/23/21 11:59 36.3 C 142 H 26 H 115/48 L 96 06/23/21 11:35 36.3 C 142 H 26 H 115/48 L 96 *Q Meaningful Use (ADM) - VTE Risk Assess *Q Each Risk Factor Represents 1 Point: Obesity ( BMI > 25 kg/m2) Total Score 1 Point Risk Factors: 1 Each Risk Factor Represents 2 Points: Age 60 - 74 Years Total Score 2 Point Risk Factors: 2 Each Risk Factor Represents 3 Points: None Total Score 3 Point Risk Factors: 0 Each Risk Factor Represents 5 Points: Elective Major Lower Extremity Arthroplasty Total Score 5 Point Risk Factors: 5 Venous Thromboembolism Risk Factor Score *Q: 8 - Problem List (1) Atrial fibrillation with rapid ventricular response SNOMED Code(s): 512122110270288 ICD Code: I48.91 - UNSPECIFIED ATRIAL FIBRILLATION Status: Acute Current Visit: No (2) Acute cystitis without hematuria SNOMED Code(s): 49909205 ICD Code: N30.00 - ACUTE CYSTITIS WITHOUT HEMATURIA Status: Acute Current Visit: Yes (3) Hypokalemia SNOMED Code(s): 72204483 ICD Code: E87.6 - HYPOKALEMIA Status: Acute Current Visit: Yes (4) Essential hypertension SNOMED Code(s): 19192261 ICD Code: I10 - ESSENTIAL (PRIMARY) HYPERTENSION Status: Chronic Current Visit: Yes (5) Type 2 diabetes mellitus SNOMED Code(s): 29398049 ICD Code: E11.9 - TYPE 2 DIABETES MELLITUS WITHOUT COMPLICATIONS Status: Chronic Current Visit: Yes Qualifiers: Diabetes mellitus usp insulin use: without 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 No issues since that time but she has remained on warfarin. Rapid Afib probably result of her infection. Failed cardioversion. Did slow down with IV metoprolol temporarily. -Restart home metoprolol -Consider immediate release diltiazem if additional rate control as needed -Continue anticoagulation -Optimize electrolytes as below -Cardiac monitoring Acute cystitis without hematuria-has been on nitrofurantoin but cx from the clinic revealed Enterobacter resistant to the nitrofurantoin. Urinalysis still suggest infection. Infection could explain the A. fib as well as her nausea and not feeling good. -Ciprofloxacin twice daily for 5 days -1 L of IV fluids then saline lock Recent right total hip arthroplasty-seems to be healing well and progressing with physical therapy. -Pain control Essential hypertension-blood pressure on the low side so we will hold her los emily for now. Type 2 diabetes mellitus-controlled with diet and natural remedies. Maintenance issues - -DVT prophylaxis-warfarin -GI prophylaxis-H2 yelena -Nutrition-regular -Reilly catheter-not indicated CODE STATUS -full code Admission justification -this patient will be admitted for observation to manage rapid atrial fibrillation and initiate antibiotics for her urinary tract infection. Disposition -I anticipate discharge home with [facility] after the hospital stay Primary care physician -Dr. Deandre Merino M.D. - Mortality Measure Prognosis:: Good
[2021-06-23] MEDS ORDERED: Ondansetron 4 MG Tab.DIS PO PRN (14:38)
[2021-06-23] MEDS ORDERED: LORazepam 2 MG/ML SDV IVPUSH PRN (14:38)
[2021-06-23] MEDS ORDERED: Magnesium Hydroxide 400 MG/5 ML Susp 30 ML Cup PO PRN (14:38)
[2021-06-23] MEDS ORDERED: Ondansetron 4 MG/2 ML SDV IV PRN (14:38)
[2021-06-23] MEDS ORDERED: Albuterol 0.083% 2.5 MG/3 ML Neb Soln NEB PRN (14:38)
[2021-06-23] MEDS ORDERED: TRAMADOL 50 MG PO PRN (14:38)
[2021-06-23] MEDS ORDERED: Sodium Chloride 0.9% 1,000 ML IV SCH (14:38)
[2021-06-23] MEDS ORDERED: WARFARIN 5 MG PO SCH ×2 (15:00→17:15)
[2021-06-23] MEDS ORDERED: traMADol 50 MG Tab PO PRN (15:00)
[2021-06-23] MEDS: Acetaminophen 325 MG Tab PO PRN ×2 (15:14→22:02)
[2021-06-23] MEDS ORDERED: Potassium Chloride 20 MEQ Tab.ER PO ONE (15:15)
[2021-06-23] MEDS: Warfarin 5 MG Tab PO SCH ×2 (16:32→17:16)
[2021-06-23] MEDS ORDERED: MONTELUKAST 10 MG PO SCH ×2 (17:00→21:00)
[2021-06-23] MEDS ORDERED: Non-Formulary Medication 1 Each (Atorvastatin [Lipitor] 80 MG Tablet) PO SCH (17:00)
[2021-06-23] MEDS ORDERED: atorvaSTATin 20 MG Tab PO SCH (17:00)
[2021-06-23] MEDS: Lactobacillus Rhamnosus GG (Probiotic) Cap PO SCH (20:32)
[2021-06-23] MEDS: Ciprofloxacin 500 MG Tab PO SCH (20:33)
[2021-06-23] MEDS ORDERED: Montelukast 10 MG Tab PO SCH (21:00)
[2021-06-23] MEDS: Loperamide 2 MG Cap PO PRN (22:57)
[2021-06-23] MEDS ORDERED: Diltiazem IR 30 MG Tab PO ONE (23:39)
[2021-06-24] MEDS ORDERED: Potassium Chloride 20 MEQ Tab.ER PO ONE (08:45)
[2021-06-24] MEDS ORDERED: Non-Formulary Medication 1 Each (Metoprolol Succinate [Toprol Xl 100mg] 100 MG Tab.Er) PO SCH (09:00)
[2021-06-24] MEDS ORDERED: Famotidine 20 MG Tab (PTOM) PO SCH (09:00)
[2021-06-24] MEDS ORDERED: FAMOTIDINE 20 MG PO SCH (09:00)
[2021-06-24] MEDS ORDERED: Metoprolol Succinate 50 MG Tab.ER (PTOM) PO SCH (09:00)
[2021-06-24] MEDS ORDERED: Aspirin 81 MG Tab.EC PO SCH (09:00)
[2021-06-24] MEDS: Acetaminophen 325 MG Tab PO PRN (09:08)
[2021-06-24] MEDS: Loperamide 2 MG Cap PO PRN (09:10)
[2021-06-24] MEDS: Lactobacillus Rhamnosus GG (Probiotic) Cap PO SCH (10:00)
[2021-06-24] MEDS ORDERED: Diltiazem IR 30 MG Tab PO SCH (10:00)
[2021-06-24] MEDS: Ciprofloxacin 500 MG Tab PO SCH (10:01)
[2021-06-24] MEDS ORDERED: traMADol 50 MG Tab PO PRN (10:29)
--- NOTE | 2021-06-24 11:29 | PCM.DCSUM1 ---
Discharge Summary - Hospital Course Brief History: 75-year-old female with history of recent right total hip arthroplasty, type 2 diabetes mellitus, essential hypertension and paroxysmal atrial fibrillation with previous ablation who presented with left foot pain, dizziness and weakness. She was admitted for management of rapid atrial fibrillation as well as urinary tract infection worsening despite outpatient antibiotics. Diagnosis: Stroke: No - Discharge Data Discharge Date: 06/24/21 Discharge Disposition: Home, Self-Care 01 Condition: Fair - Referral to Home Health Primary Care Physician: PCP Unknown - Discharge Diagnosis/Problem(s) (1) Atrial fibrillation with rapid ventricular response SNOMED Code(s): 671733381489105 ICD Code: I48.91 - UNSPECIFIED ATRIAL FIBRILLATION Status: Acute Current Visit: Yes (2) Acute cystitis without hematuria SNOMED Code(s): 23404312 ICD Code: N30.00 - ACUTE CYSTITIS WITHOUT HEMATURIA Status: Acute Current Visit: Yes (3) Hypokalemia SNOMED Code(s): 29699244 ICD Code: E87.6 - HYPOKALEMIA Status: Acute Current Visit: No (4) Essential hypertension SNOMED Code(s): 01983721 ICD Code: I10 - ESSENTIAL (PRIMARY) HYPERTENSION Status: Chronic Current Visit: No (5) Type 2 diabetes mellitus SNOMED Code(s): 66671559 ICD Code: E11.9 - TYPE 2 DIABETES MELLITUS WITHOUT COMPLICATIONS Status: Chronic Current Visit: No Qualifiers: Diabetes mellitus missionary coordinator insulin use: without missionary coordinator use Diabetes mellitus complication status: without complication Qualified Code(s): E11.9 - Type 2 diabetes mellitus without complications - Patient Summary/Data Hospital Course: Malathi presented to the emergency room with weakness, dizziness, diarrhea as well as left foot pain. The left foot pain started after she dropped a water glass on her foot while urgently trying to get to the bathroom for a diarrhea bowel movement. She was very weak and lightheaded and shaky so she came in for evaluation. Work-up in the emergency room did reveal mild leukocytosis but otherwise her labs did not look too bad. She was noted to be in rapid atrial fibrillation with a heart rate in the 130-140 range. She was nitrofurantoin for an outpatient urinary tract infection. Her urine culture from the clinic was reviewed and this showed Enterococcus that was resistant to the nitrofurantoin but sensitive to ciprofloxacin. Patient was admitted to the hospital for combination of rate control, initiating new antibiotics for urinary tract infection as well as potential work-up for her diarrhea. Overnight following admission we did see a slow but steady improvement in her heart rate with the atrial fibrillation. She had several episodes of watery diarrhea so we did perform C. difficile testing which was negative. At this time we started her on loperamide which seems to be helping with the diarrhea. I suspect her diarrhea is more of a chronic issue and encouraged her to try a probiotic. She has previously been worked up for ova and parasites and additional bacterial work- up. Last colonoscopy was 1 year ago prior to onset of diarrhea. She tolerated the ciprofloxacin well for the urinary tract infection and the plan is to continue this for 4 more days. Regarding the atrial fibrillation, we did achieve good rate control overnight though this morning it was slightly faster when she was up and moving around. She is very interested in going home today and does not want to spend another night in the hospital. She has responded to the immediate release diltiazem so I think it is safe to send her home with long-acting diltiazem. She is anticoagulated with warfarin. I suspect the atrial fibrillation which had been under good control since her ablation 3 years ago is multifactorial with infection, recent surgery and the stress from that as well as a recent increase in her caffeine intake. She will be decreasing the caffeine and hopefully eliminating it. Hopefully treating the infection will help along with the additional rate control. She will have early follow-up scheduled with Dr. Carrera. - Patient Instructions Diet: Regular Diet as Tolerated Activity: As Tolerated Showering/Bathing: May Shower Notify Provider of: Fever, Increased Pain Other/Special Instructions: 1. You were in the hospital for management of a urinary tract infection with a bacteria that was resistant to your outpatient antibiotic as well as rapid atrial fibrillation. To provide adequate antibiotic therapy for the urinary tract infection I recommend that you take ciprofloxacin 500 mg twice daily for 8 more doses. Your first dose outside of the hospital will be due tonight. For the atrial fibrillation, I recommend that we add a long-acting diltiazem to help slow down your heart rate while you are active. It is important that you continue your metoprolol as well as your warfarin for anticoagulation. 2. We did test your stool for C. difficile and you have previously been tested for ova and parasites as well as dangerous bacteria that could cause diarrhea. I recommend a trial of a probiotic that you should take twice daily for 2 to 4 weeks. If this improves your symptoms that would be ideal. If you have continued difficulty we may need to consider either a CT scan of the abdomen and pelvis or colonoscopy. 3. Continue your usual home medications as previously prescribed. 4. Follow up with your primary care physician in 3 to 5 days to reassess vital signs and symptoms. - Discharge Plan *PRESCRIPTION DRUG MONITORING PROGRAM REVIEWED*: Not Applicable *COPY OF PRESCRIPTION DRUG MONITORING REPORT IN PATIENT MARVA: Not Applicable Prescriptions/Med Rec: Ciprofloxacin [Ciprofloxacin HCl] 500 mg PO BIDAC #8 tablet Diltiazem HCl [Diltiazem 24Hr Cd] 240 mg PO DAILY #30 cap.er.24h Home Medications: Home Meds Cholecalciferol (Vitamin D3) [Vitamin D3] 2,000 unit PO DAILY 03/16/14 [History] Allopurinol [Zyloprim] 300 mg PO DAILY 03/13/15 [History] Bee Pollen 1,000 mg PO DAILY 03/13/15 [History] Warfarin [Coumadin] 5 mg PO ASDIRECTED 06/26/16 [History] Levalbuterol Tartrate [Xopenex HFA] 2 puff INH Q6H PRN 03/10/18 [History] Metoprolol Succinate [Toprol XL 100mg] 75 mg PO QAM 03/11/18 [History] Albuterol [Ventolin 2 MG/5 ML] 1.5 ml NEB DAILY 08/04/20 [History] Furosemide [Lasix] 40 mg PO DAILY PRN 08/04/20 [History] Losartan [Cozaar] 12.5 mg PO DAILY 08/04/20 [History] Montelukast [Singulair] 1 tab PO QPM 08/04/20 [History] Nitroglycerin [Nitrostat] 0.4 mg SL ASDIRECTED PRN 08/04/20 [History] aMILoride [Midamor] 5 mg PO DAILY 08/04/20 [History] atorvaSTATin [Lipitor] 80 mg PO QPM 08/04/20 [History] Famotidine [Pepcid AC] 20 mg PO BID 10/03/20 [History] Acetaminophen 650 mg PO Q6H PRN 06/23/21 [History] Aspirin [Adult Low Dose Aspirin EC] 81 mg PO DAILY 06/23/21 [History] traMADol [Ultram] 1 - 2 tab PO Q4HR PRN 06/23/21 [History] Ciprofloxacin [Ciprofloxacin HCl] 500 mg PO BIDAC #8 tablet 06/24/21 [Rx] Diltiazem HCl [Diltiazem 24Hr Cd] 240 mg PO DAILY #30 cap.er.24h 06/24/21 [Rx] Oxygen Therapy Mode: Room Air Patient Handouts: Ciprofloxacin tablets, Atrial Fibrillation Referrals: Fransico Carrera MD [Physician] - (follow up in 3-5 days - recheck BP and HR as well as UTI symptoms) - Discharge Summary/Plan Comment DC Time >30 min.: No Total # of Minutes for Discharge Time: 25 - Patient Data Vitals - Most Recent: Last Vital Signs Temp 37.7 C 06/24/21 08:49 Pulse 95 06/24/21 09:05 Resp 16 06/24/21 08:49 BP 123/61 06/24/21 09:05 Pulse Ox 97 06/24/21 08:49 Weight - Most Recent: 107.2 kg I&O - Last 24 hours: Intake & Output 06/23/21 06/24/21 06/24/21 22:59 06:59 14:59 Output Total 300 Balance -300 Lab Results - Last 24 hrs: Laboratory Results - last 24 hr 06/23/21 06/23/21 06/23/21 Range/Units 11:45 11:45 12:28 WBC 8.4 (4.5-11.0) K/uL RBC 3.70 (3.30-5.50) M/uL Hgb 11.4 L (12.0-15.0) g/dL Hct 33.5 L (36.0-48.0) % MCV 91 (80-98) fL MCH 31 (27-31) pg MCHC 34 (32-36) % Plt Count 375 (150-400) K/uL Neut % (Auto) 91.0 H (36-66) % Lymph % (Auto) 3.4 L (24-44) % [place] % (Auto) 5.4 (2-6) % Eos % (Auto) 0.1 L (2-4) % Baso % (Auto) 0.1 (0-1) % PT (9.5-12.0) sec INR (0.80-1.20) Sodium 134 L (140-148) mmol/L Potassium 3.5 L (3.6-5.2) mmol/L Chloride 97 L (100-108) mmol/L Carbon Dioxide 21 (21-32) mmol/L Anion Gap 19.5 H (5.0-14.0) mmol/L BUN 9 D (7-18) mg/dL Creatinine 0.9 (0.6-1.0) mg/dL Est Cr Clr Drug Dosing 45.36 mL/min Estimated GFR (MDRD) > 60 (>60) Glucose 140 H (74-106) mg/dL Calcium 8.4 L (8.5-10.1) mg/dL Total Bilirubin 0.7 (0.2-1.0) mg/dL AST 64 H D (15-37) U/L ALT 47 D (12-78) U/L Alkaline Phosphatase 98 D (46-116) U/L Troponin I < 0.017 (0.000-0.056) ng/mL Total Protein 6.2 L (6.4-8.2) g/dL Albumin 2.6 L (3.4-5.0) g/dL Globulin 3.6 H (2.3-3.5) g/dL Albumin/Globulin Ratio 0.7 L (1.2-2.2) Urine Color Yellow (YELLOW) Urine Appearance Slightly cloudy A (CLEAR) Urine pH 5.5 (5.0-8.0) Ur Specific [place] 1.020 (1.008-1.030) Urine Protein Trace H (NEGATIVE) mg/dL Urine Glucose (UA) Negative (NEGATIVE) mg/dL Urine Ketones 15 H (NEGATIVE) mg/dL Urine Occult Blood Trace-intact H (NEGATIVE) Urine Nitrite Negative (NEGATIVE) Urine Bilirubin Negative (NEGATIVE) Urine Urobilinogen 0.2 (0.2-1.0) EU/dL Ur Leukocyte Esterase Small H (NEGATIVE) Urine RBC 5-10 H (0-5) Urine WBC 20-30 H (0-5) Ur Epithelial Cells Few Amorphous Sediment Few Urine Bacteria Few Urine Mucus Few 06/23/21 06/24/21 06/24/21 Range/Units 13:29 04:25 04:25 WBC 6.0 (4.5-11.0) K/uL RBC 3.20 L (3.30-5.50) M/uL Hgb 9.8 L (12.0-15.0) g/dL Hct 29.6 L (36.0-48.0) % MCV 93 (80-98) fL MCH 31 (27-31) pg MCHC 33 (32-36) % Plt Count 308 (150-400) K/uL Neut % (Auto) (36-66) % Lymph % (Auto) (24-44) % [place] % (Auto) (2-6) % Eos % (Auto) (2-4) % Baso % (Auto) (0-1) % PT 19.7 H 18.7 H (9.5-12.0) sec INR 1.83 H 1.73 H (0.80-1.20) Sodium (140-148) mmol/L Potassium (3.6-5.2) mmol/L Chloride (100-108) mmol/L Carbon Dioxide (21-32) mmol/L Anion Gap (5.0-14.0) mmol/L BUN (7-18) mg/dL Creatinine (0.6-1.0) mg/dL Est Cr Clr Drug Dosing mL/min Estimated GFR (MDRD) (>60) Glucose (74-106) mg/dL Calcium (8.5-10.1) mg/dL Total Bilirubin (0.2-1.0) mg/dL AST (15-37) U/L ALT (12-78) U/L Alkaline Phosphatase (46-116) U/L Troponin I (0.000-0.056) ng/mL Total Protein (6.4-8.2) g/dL Albumin (3.4-5.0) g/dL Globulin (2.3-3.5) g/dL Albumin/Globulin Ratio (1.2-2.2) Urine Color (YELLOW) Urine Appearance (CLEAR) Urine pH (5.0-8.0) Ur Specific [place] (1.008-1.030) Urine Protein (NEGATIVE) mg/dL Urine Glucose (UA) (NEGATIVE) mg/dL Urine Ketones (NEGATIVE) mg/dL Urine Occult Blood (NEGATIVE) Urine Nitrite (NEGATIVE) Urine Bilirubin (NEGATIVE) Urine Urobilinogen (0.2-1.0) EU/dL Ur Leukocyte Esterase (NEGATIVE) Urine RBC (0-5) Urine WBC (0-5) Ur Epithelial Cells Amorphous Sediment Urine Bacteria Urine Mucus 06/24/21 Range/Units 04:25 WBC (4.5-11.0) K/uL RBC (3.30-5.50) M/uL Hgb (12.0-15.0) g/dL Hct (36.0-48.0) % MCV (80-98) fL MCH (27-31) pg MCHC (32-36) % Plt Count (150-400) K/uL Neut % (Auto) (36-66) % Lymph % (Auto) (24-44) % [place] % (Auto) (2-6) % Eos % (Auto) (2-4) % Baso % (Auto) (0-1) % PT (9.5-12.0) sec INR (0.80-1.20) Sodium 137 L (140-148) mmol/L Potassium 3.6 (3.6-5.2) mmol/L Chloride 102 (100-108) mmol/L Carbon Dioxide 24 (21-32) mmol/L Anion Gap 14.6 H (5.0-14.0) mmol/L BUN 7 (7-18) mg/dL Creatinine 0.8 (0.6-1.0) mg/dL Est Cr Clr Drug Dosing 52.16 mL/min Estimated GFR (MDRD) > 60 (>60) Glucose 113 H (74-106) mg/dL Calcium 7.6 L (8.5-10.1) mg/dL Total Bilirubin (0.2-1.0) mg/dL AST (15-37) U/L ALT (12-78) U/L Alkaline Phosphatase (46-116) U/L Troponin I (0.000-0.056) ng/mL Total Protein (6.4-8.2) g/dL Albumin (3.4-5.0) g/dL Globulin (2.3-3.5) g/dL Albumin/Globulin Ratio (1.2-2.2) Urine Color (YELLOW) Urine Appearance (CLEAR) Urine pH (5.0-8.0) Ur Specific [place] (1.008-1.030) Urine Protein (NEGATIVE) mg/dL Urine Glucose (UA) (NEGATIVE) mg/dL Urine Ketones (NEGATIVE) mg/dL Urine Occult Blood (NEGATIVE) Urine Nitrite (NEGATIVE) Urine Bilirubin (NEGATIVE) Urine Urobilinogen (0.2-1.0) EU/dL Ur Leukocyte Esterase (NEGATIVE) Urine RBC (0-5) Urine WBC (0-5) Ur Epithelial Cells Amorphous Sediment Urine Bacteria Urine Mucus KARO Results - Last 24 hrs: Microbiology 06/23/21 18:27 Clostridioides difficile (PCR) - Final Stool / Feces Med Orders - Current: Current Medications Acetaminophen (Acetaminophen 325 Mg Tab) 650 mg PO Q6H PRN PRN Reason: PAIN/FEVER Last Admin: 06/24/21 09:08 Dose: 650 mg Documented by: Albuterol (Albuterol 0.083% 2.5 Mg/3 Ml Neb Soln) 2.5 mg NEB Q4H PRN PRN Reason: Shortness Of Breath/wheezing Aspirin (Aspirin 81 Mg Tab.Ec) 81 mg PO DAILY [facility] Last Admin: 06/24/21 09:59 Dose: 81 mg Documented by: Ciprofloxacin (Ciprofloxacin 500 Mg Tab) 500 mg PO BIDAC [facility] Last Admin: 06/24/21 10:01 Dose: 500 mg Documented by: Diltiazem HCl (Diltiazem Ir 30 Mg Tab) 30 mg PO Q6HR [facility] Last Admin: 06/24/21 10:00 Dose: 30 mg Documented by: Diltiazem HCl (Diltiazem 120 Mg Cap.Cd) 240 mg PO ONETIME ONE Stop: 06/24/21 11:24 Famotidine (Famotidine 20 Mg Tab (Ptom)) 20 mg PO DAILY [facility] Last Admin: 06/24/21 10:00 Dose: 20 mg Documented by: Lactobacillus Rhamnosus (Lactobacillus Rhamnosus Gg (Probiotic) Cap) 1 cap PO BID [facility] Last Admin: 06/24/21 10:00 Dose: 1 cap Documented by: Loperamide HCl (Loperamide 2 Mg Cap) 2 mg PO Q4H PRN PRN Reason: Diarrhea Last Admin: 06/24/21 09:10 Dose: 2 mg Documented by: Lorazepam (Lorazepam 2 Mg/Ml Sdv) 0.5 mg IVPUSH Q4H PRN PRN Reason: Nausea/Vomiting Magnesium Hydroxide (Magnesium Hydroxide 400 Mg/5 Ml Susp 30 Ml Cup) 30 ml PO Q12H PRN PRN Reason: Constipation Metoprolol Succinate (Metoprolol Succinate 50 Mg Tab.Er (Ptom)) 75 mg PO DAILY [facility] Last Admin: 06/24/21 09:05 Dose: 75 mg Documented by: Montelukast Sodium (Montelukast 10 Mg Tab*Pt Own Med*) 10 mg PO BEDTIME [facility] Last Admin: 06/23/21 20:33 Dose: 10 mg Documented by: Atorvastatin 80 Mg (Tab *Pt Own Med*) 0 each PO QPM [facility] Ondansetron HCl (Ondansetron 4 Mg/2 Ml Sdv) 4 mg IV Q6H PRN PRN Reason: Nausea/Vomiting Last Admin: 06/24/21 09:01 Dose: 4 mg Documented by: Ondansetron HCl (Ondansetron 4 Mg Tab.Dis) 4 mg PO Q6H PRN PRN Reason: Nausea able to take PO Last Admin: 06/23/21 22:57 Dose: 4 mg Documented by: Senna/Docusate Sodium (Docusate Sodium/Sennosides 50-8.6 Mg Tab) 1 tab PO BID PRN PRN Reason: Constipation Tramadol HCl (Tramadol 50 Mg Tab) 50 mg PO Q4H PRN PRN Reason: Pain Warfarin Sodium (Warfarin 5 Mg Tab *Pt Own Med*) 5 mg PO DAILY@1300 [facility] Last Admin: 06/23/21 16:32 Dose: 5 mg Documented by: Discontinued Medications Atorvastatin Calcium (Atorvastatin 20 Mg Tab) 80 mg PO QPM [facility] Last Admin: 06/23/21 16:32 Dose: Not Given Documented by: Ciprofloxacin (Ciprofloxacin 500 Mg Tab) 500 mg PO ONETIME ONE Stop: 06/23/21 14:13 Last Admin: 06/23/21 14:18 Dose: 500 mg Documented by: Diltiazem HCl (Diltiazem Ir 30 Mg Tab) 60 mg PO ONETIME ONE Stop: 06/23/21 23:40 Last Admin: 06/23/21 23:48 Dose: 60 mg Documented by: Sodium Chloride (Normal Saline) 1,000 mls @ 125 mls/hr IV ASDIRECTED [facility] Stop: 06/23/21 22:39 Last Admin: 06/23/21 15:00 Dose: 125 mls/hr Documented by: Metoprolol Succinate (Metoprolol Succinate 50 Mg Tab.Er) 50 mg PO ONETIME ONE Stop: 06/23/21 14:13 Last Admin: 06/23/21 14:17 Dose: 50 mg Documented by: Metoprolol Tartrate (Metoprolol Tartrate 5 Mg/5 Ml Sdv) 5 mg IVPUSH ONETIME ONE Stop: 06/23/21 12:05 Last Admin: 06/23/21 12:09 Dose: 5 mg Documented by: Montelukast Sodium (Montelukast 10 Mg Tab) 10 mg PO BEDTIME [facility] Potassium Chloride (Potassium Chloride 20 Meq Tab.Er) 40 meq PO ONETIME ONE Stop: 06/23/21 15:16 Last Admin: 06/23/21 16:32 Dose: 40 meq Documented by: Potassium Chloride (Potassium Chloride 20 Meq Tab.Er) 40 meq PO ONETIME ONE Stop: 06/24/21 08:46 Last Admin: 06/24/21 09:59 Dose: 40 meq Documented by: Propofol (Propofol 200 Mg/20 Ml Sdv) 200 mg IVPUSH ONETIME ONE Stop: 06/23/21 12:57 Last Admin: 06/23/21 13:57 Dose: 70 mg Documented by: Warfarin Sodium (Warfarin 5 Mg Tab) 5 mg PO DAILY@1300 [facility] Last Admin: 06/23/21 17:16 Dose: Not Given Documented by:
[2021-06-24] MEDS ORDERED: Diltiazem 120 MG Cap.CD PO ONE (12:15)
[2021-06-24 12:18] VITALS: BP 100/70; PULSE 93
--- NOTE | 2021-06-25 17:28 | PCM.EKG ---
#1 Interpretation EKG Date: 06/23/21 Time: 15:20 Rhythm: A-Fib Rate (Beats/Min): 127 [place]: Normal P-Wave: Absent QRS: Other (Delayed R wave progression precordial leads, possible old inferior wall myocardial infarction) ST-T: Normal QT: Normal Comparison: NA - No Prior EKG
== END 2021-06-24 12:30 | disposition home or self-care (01) ==
LOC: JP.ED 11:33 → INTOOBSV 14:27 → JP.ICU 14:27 → JP.MS 14:32
PROVIDERS: ADMIT Internal Medicine; ATTEND Internal Medicine
DX: I48.0 Paroxysmal atrial fibrillation (principal); I10 Essential (primary) hypertension; E11.9 Type 2 diabetes mellitus without complications; R55 Syncope and collapse; S90.32XA Contusion of left foot, initial encounter; K59.00 Constipation, unspecified; I25.2 Old myocardial infarction; E78.00 Pure hypercholesterolemia, unspecified; K21.9 Gastro-esophageal reflux disease without esophagitis; J45.909 Unspecified asthma, uncomplicated; N30.00 Acute cystitis without hematuria; E87.6 Hypokalemia; Z79.82 Long term (current) use of aspirin; Z88.5 Allergy status to narcotic agent; Z88.2 Allergy status to sulfonamides; Z88.8 Allergy status to other drugs, medicaments and biological substances; Z91.040 Latex allergy status; Z79.899 Other long term (current) drug therapy; Z79.01 Long term (current) use of anticoagulants; Z95.5 Presence of coronary angioplasty implant and graft; Z98.890 Other specified postprocedural states
CPT/HCPCS: 36415; 80048; 80053; 81001; 84484; 85025; 85027; 85610; 87493; 92960; 93005; 96374; 96375; 99285; A9270; G0378; J2405; J2704; J3490; J7030

== ENCOUNTER 2022-04-04 06:38 | Day surgery (SDC) | payer MEDICARE, BC ==
[2022-04-04] MEDS ORDERED: Dextrose 5%-Lactated Ringers 1,000 ML IV SCH (07:30)
[2022-04-04] MEDS ORDERED: Propofol 200 MG/20 ML SDV ONE ×2 (07:33→09:52)
[2022-04-04] MEDS ORDERED: Albuterol/Ipratropium 3.0-0.5 MG/3 ML Neb Soln NEB ONE (07:45)
[2022-04-04] MEDS ORDERED: Pantoprazole 40 MG Vial IVPUSH ONE (10:05)
[2022-04-04 11:10] VITALS: BP 1332/58; PULSE 73
== END 2022-04-04 11:17 | disposition home or self-care (01) ==
LOC: JP.SDS 06:38
PROVIDERS: ATTEND Surgery
DX: K29.60 Other gastritis without bleeding (principal); K22.70 Barrett's esophagus without dysplasia; K44.9 Diaphragmatic hernia without obstruction or gangrene; K25.9 Gastric ulcer, unspecified as acute or chronic, without hemorrhage or perforation; J45.909 Unspecified asthma, uncomplicated; I25.2 Old myocardial infarction; I50.9 Heart failure, unspecified; E11.22 Type 2 diabetes mellitus with diabetic chronic kidney disease; N18.9 Chronic kidney disease, unspecified; K21.9 Gastro-esophageal reflux disease without esophagitis
CPT/HCPCS: 36415; 43239; 85610; 87081; 94640; C9113; J2704; J7121; 88305; J7620

== ENCOUNTER 2023-04-09 14:59 | Emergency (ER) | payer MEDICARE, BC ==
[2023-04-09] MEDS ORDERED: Sodium Chloride 0.9% 10 ML Syringe FLUSH PRN (15:29)
[2023-04-09] MEDS ORDERED: Aspirin 81 MG Tab.Chew PO ONE (15:33)
[2023-04-09 15:43] LABS: BASOPHILS ABSOLUTE AUTO 0.03 K/uL (0.00-0.10); BASOPHILS PERCENT AUTO 0.5 % (0.1-1.3); EOSINOPHILS ABSOLUTE AUTO 0.16 K/uL (0.00-0.40); EOSINOPHILS PERCENT AUTO 2.9 % (0.0-5.4); HEMATOCRIT 36.7 % (34.3-46.0); HEMOGLOBIN 12.6 g/dL (11.2-15.5); IMMATURE GRAN ABSOLUTE AUTO 0.01 K/uL (0.00-0.23); IMMATURE GRAN PERCENT AUTO 0.2 % (0.0-0.7); LYMPHOCYTES ABSOLUTE AUTO 1.78 K/uL (0.8-3.3); LYMPHOCYTES PERCENT AUTO 32.2 % (11.4-47.7); MEAN CORPUSCULAR HEMOGLOBIN 31.3 pg (31.6-35.5); MEAN CORPUSCULAR HGB CONC 34.3 g/dL (31.6-35.5); MEAN CORPUSCULAR VOLUME 91.1 fL (81.4-99.0); MONOCYTES ABSOLUTE AUTO 0.63 K/uL (0.20-0.90); MONOCYTES PERCENT AUTO 11.4 % (3.3-12.6); NEUTROPHILS ABSOLUTE AUTO 2.92 K/uL (1.0-7.6); NEUTROPHILS PERCENT AUTO 52.8 % (40.0-78.1); PLATELET COUNT,PLT 196 K/uL (130-375); RED BLOOD CELL COUNT 4.03 M/uL (3.77-5.24); WHITE BLOOD CELL COUNT,WBC 5.5 K/uL (3.2-11.0)
[2023-04-09 16:05] LABS: INR 2.3; PROTHROMBIN TIME 21.8 sec (9.2-10.6); PTT,PARTIAL THROMBOPLSTIN TIME 35.4 sec (21.8-27.3)
[2023-04-09 16:10] LABS: ANION GAP 10.7 mmol/L (5.0-14.0); CALCIUM 8.9 mg/dL (8.5-10.1); CREATININE 0.8 mg/dL (0.6-1.0); EST CRCL DRUG DOSING (CG) 49.49 mL/min; POTASSIUM,K 4.7 mmol/L (3.6-5.2); TROPONIN I HIGH SENSITIVITY 7.9 pg/mL (<=60.3)
[2023-04-09 16:18] LABS: APPEARANCE,URINE CLEAR (CLEAR); BILIRUBIN,URINE NEGATIVE (NEGATIVE); COLOR,URINE YELLOW (YELLOW); GLUCOSE,URINE NEGATIVE (NEGATIVE); KETONES,URINE NEGATIVE (NEGATIVE); LEUKOCYTE ESTERASE,URINE NEGATIVE (NEGATIVE); NITRITE,URINE NEGATIVE (NEGATIVE); OCCULT BLOOD,URINE NEGATIVE (NEGATIVE); PROTEIN,URINE NEGATIVE (NEGATIVE); UROBILINOGEN,URINE 0.2 EU/dL (0.2-1.0)
[2023-04-09 16:24] LABS: AMORPHOUS SEDIMENT,URINE NOT SEEN; BACTERIA,URINE FEW; EPITHELIAL CELLS,URINE MODERATE; MUCUS,URINE NOT SEEN; RBC,URINE 0-5 (0-5); WBC,URINE 0-5 (0-5)
[2023-04-09 17:56] VITALS: BP 128/71; PULSE 98
== END 2023-04-09 17:55 | disposition home or self-care (01) ==
LOC: JP.ED 14:59
DX: I48.92 Unspecified atrial flutter (principal); I11.0 Hypertensive heart disease with heart failure; I50.9 Heart failure, unspecified; E86.1 Hypovolemia; I25.2 Old myocardial infarction; E78.00 Pure hypercholesterolemia, unspecified; I48.91 Unspecified atrial fibrillation; K21.9 Gastro-esophageal reflux disease without esophagitis; M19.90 Unspecified osteoarthritis, unspecified site; E11.9 Type 2 diabetes mellitus without complications; Z88.5 Allergy status to narcotic agent; Z88.8 Allergy status to other drugs, medicaments and biological substances; Z88.1 Allergy status to other antibiotic agents; Z91.040 Latex allergy status; Z88.2 Allergy status to sulfonamides; Z91.048 Other nonmedicinal substance allergy status; Z79.01 Long term (current) use of anticoagulants; Z79.82 Long term (current) use of aspirin; Z79.899 Other long term (current) drug therapy
CPT/HCPCS: 36415; 71045; 80048; 81001; 83880; 84484; 85025; 85610; 85730; 93005; 99285; A9270; J3490

== ENCOUNTER 2024-03-19 06:37 | Day surgery (SDC) | payer MEDICARE, BC ==
[2024-03-19] MEDS ORDERED: fentaNYL 50 MCG/ML SDV ONE (06:50)
[2024-03-19] MEDS ORDERED: Propofol 200 MG/20 ML SDV ONE ×2 (06:50→08:18)
[2024-03-19] MEDS: Sodium Chloride 0.9% 1,000 ML IV SCH (07:45)
[2024-03-19 09:37] VITALS: BP 132/66; PULSE 51
== END 2024-03-19 09:39 | disposition home or self-care (01) ==
LOC: JP.SDS 06:37
PROVIDERS: ATTEND Surgery
DX: K64.8 Other hemorrhoids (principal); K57.31 Diverticulosis of large intestine without perforation or abscess with bleeding; K44.9 Diaphragmatic hernia without obstruction or gangrene; K22.89 Other specified disease of esophagus; J45.909 Unspecified asthma, uncomplicated
CPT/HCPCS: 00813-QZ; J2704; J3010; J7030

== ENCOUNTER 2024-05-24 18:16 | Emergency (ER) | payer MEDICARE, BC ==
[2024-05-24 18:59] VITALS: BP 151/69; PULSE 71
== END 2024-05-24 19:56 | disposition home or self-care (01) ==
LOC: JP.ED 18:16
DX: R60.0 Localized edema (principal); I10 Essential (primary) hypertension; I25.2 Old myocardial infarction; E78.00 Pure hypercholesterolemia, unspecified; K21.9 Gastro-esophageal reflux disease without esophagitis; E11.9 Type 2 diabetes mellitus without complications; Z90.49 Acquired absence of other specified parts of digestive tract; Z90.710 Acquired absence of both cervix and uterus; Z79.01 Long term (current) use of anticoagulants; Z79.82 Long term (current) use of aspirin; Z79.899 Other long term (current) drug therapy; Z88.5 Allergy status to narcotic agent; Z91.040 Latex allergy status; Z88.2 Allergy status to sulfonamides; Z88.8 Allergy status to other drugs, medicaments and biological substances; Z91.048 Other nonmedicinal substance allergy status
CPT/HCPCS: 99283

== ENCOUNTER 2025-07-02 13:00 | Emergency (ER) | payer MEDICARE, BC ==
[2025-07-02 13:32] VITALS: BP 134/75; PULSE 95
== END 2025-07-02 14:14 | disposition home or self-care (01) ==
LOC: JP.ED 13:00
DX: Z76.0 Encounter for issue of repeat prescription (principal); I10 Essential (primary) hypertension; E78.00 Pure hypercholesterolemia, unspecified; K21.9 Gastro-esophageal reflux disease without esophagitis; E11.9 Type 2 diabetes mellitus without complications; Z88.5 Allergy status to narcotic agent; Z88.8 Allergy status to other drugs, medicaments and biological substances; Z88.2 Allergy status to sulfonamides; Z79.82 Long term (current) use of aspirin; Z79.899 Other long term (current) drug therapy
CPT/HCPCS: 99283